=== PATIENT | male | born 1945 | race Caucasian/White ===

== ENCOUNTER 2018-02-14 20:27 | Emergency (ER) | payer BC ==
[~2018-02-14] VITALS: Ht 175.3 cm; Wt 90.9 kg
[2018-02-14 20:30] VITALS: TEMP 97.9
[2018-02-14] MEDS ORDERED: NORCO 325 MG-51 TAB PO (21:22)
[2018-02-14] MEDS ORDERED: CRUTCHES MC (21:24)
[2018-02-14 22:57] VITALS: BP 144/87; PULSE 94
== END 2018-02-14 22:58 | disposition home or self-care (01) ==
LOC: COL.ER 20:27
DX: S92.001A Unspecified fracture of right calcaneus, initial encounter for closed fracture (principal); W11.XXXA Fall on and from ladder, initial encounter; Y92.009 Unspecified place in unspecified non-institutional (private) residence as the place of occurrence of the external cause
CPT/HCPCS: Q4045